=== PATIENT | male | born 1980 | race Caucasian/White ===

== ENCOUNTER 2019-11-10 05:45 | Day surgery (SDC) | payer OTHER ==
[~2019-11-10] VITALS: Ht 177.8 cm; Wt 87.5 kg
[2019-11-10] MEDS ORDERED: LACTATED RINGERS 1,000 ML IV SCH (06:19)
[2019-11-10] MEDS ORDERED: none per pt (06:21)
[2019-11-10] MEDS ORDERED: LIDOCAINE-MPF 1%, 2ML INFIL ONE (06:30)
[2019-11-10 06:35] VITALS: BP 122/75
[2019-11-10] MEDS ORDERED: MIDAZOLAM 1 MG/ML, 2ML ONE (06:53)
[2019-11-10] MEDS ORDERED: FENTANYL PF 250 MCG/5ML ONE (06:54)
[2019-11-10] MEDS ORDERED: SUGAMMADEX 200 MG/2 ML IVPush ONE (07:08)
[2019-11-10] MEDS ORDERED: ROCURONIUM 10 MG/ML,10ML ONE (07:08)
[2019-11-10] MEDS ORDERED: ACETAMINOPHEN 325 MG TABLET PO PRN (08:00)
[2019-11-10] MEDS ORDERED: OXYcodone 5 MG/5 ML ORAL.SOL UDC PO PRN (08:00)
[2019-11-10] MEDS ORDERED: HALOPERIDOL 5 MG/ML IV PRN (08:00)
[2019-11-10] MEDS ORDERED: MEPERIDINE/PF 25MG/ML,1ML IVPush PRN (08:00)
[2019-11-10] MEDS ORDERED: FENTANYL PF 100 MCG/2ML IV PRN (08:00)
[2019-11-10] MEDS ORDERED: hydrALAzine 20 MG/ML, 1ML IV PRN (08:00)
[2019-11-10] MEDS ORDERED: HYDROmorphone 2 MG/ML, 1ML IVPush PRN (08:00)
[2019-11-10] MEDS ORDERED: ACETAMINOPHEN 650 MG/20.3 ML UDC ONE (08:10)
[2019-11-10] MEDS ORDERED: OXYcodone 5 MG/5 ML ORAL.SOL UDC ONE (08:10)
[2019-11-10] MEDS ORDERED: KETOROLAC 30 MG/1 ML ONE (11:15)
[2019-11-10] MEDS ORDERED: PROPOFOL 10 MG/ML, 20ML ONE (11:15)
[2019-11-10] MEDS ORDERED: ONDANSETRON 2MG/ML, 2ML ONE (11:15)
[2019-11-10] MEDS ORDERED: LIDOCAINE-MPF 2% ,5ML ONE (11:15)
[2019-11-10] MEDS ORDERED: DEXAMETHASONE 4 MG/ML, 1ML ONE (11:15)
== END 2019-11-10 10:00 | disposition home or self-care (01) ==
LOC: OUT 05:45
PROVIDERS: ATTEND Surgery
DX: K61.1 Rectal abscess (principal); K64.5 Perianal venous thrombosis; K64.8 Other hemorrhoids; F17.210 Nicotine dependence, cigarettes, uncomplicated
CPT/HCPCS: 46255; 88304; J1100; J1885; J2250; J2405; J2704; J3010